=== PATIENT | female | born 1990 | race African-American/Black ===

== ENCOUNTER 2017-04-12 01:05 | Emergency (ER) | payer OTHER ==
[2017-04-12 03:42] LABS: microscopic required? YES; urine erythrocyte TRACE (NEGATIVE)
[2017-04-12 03:58] VITALS: BP 122/81
== END 2017-04-12 03:58 | disposition home or self-care (01) ==
LOC: ED 01:05
PROVIDERS: Emergency Medicine
DX: S39.012A Strain of muscle, fascia and tendon of lower back, initial encounter (principal); I10 Essential (primary) hypertension; X58.XXXA Exposure to other specified factors, initial encounter; Y93.89 Activity, other specified; Y99.8 Other external cause status; Y92.89 Other specified places as the place of occurrence of the external cause
CPT/HCPCS: J1885

== ENCOUNTER 2017-05-20 21:17 | Emergency (ER) | payer OTHER ==
[~2017-05-20] VITALS: Ht 154.9 cm; Wt 57.1 kg
[2017-05-20 23:48] VITALS: BP 112/76
== END 2017-05-20 23:48 | disposition home or self-care (01) ==
LOC: ED 21:17
DX: I10 Essential (primary) hypertension (principal); M79.89 Other specified soft tissue disorders
CPT/HCPCS: J8597; Q0163

== ENCOUNTER 2020-08-30 21:00 | Emergency (ER) | payer OTHER ==
[~2020-08-30] VITALS: Ht 157.5 cm; Wt 60.3 kg
[2020-08-30 21:13] VITALS: Ht 157.5 cm; Wt 60.3 kg
[2020-08-30 22:14] LABS: BASOPHIL % 0.5 % (0.2-1.3); PLATELET COUNT 242 x10^3mcL (179-408); RED CELL DISTRIBUTION WIDTH 13.3 % (12.3-17.7)
[2020-08-30 22:20] LABS: CALCIUM 8.9 mg/dL (8.5-10.1); CARBON DIOXIDE 30.5 mmol/L (21-32); CHLORIDE SERUM 103 mmol/L (98-107); CREATININE SERUM 1.2 mg/dL (0.6-1.0); GFR1 56 mL/min; GLUCOSE SERUM 83 mg/dL (74-106); SODIUM SERUM 139 mmol/L (136-145)
[2020-08-30 22:24] LABS: ALKALINE PHOSPHATASE 57 U/L (46-116); ALT/SGPT 16 U/L (14-59); AST/SGOT 9 U/L (15-37); BILIRUBIN TOTAL 0.4 mg/dL (0.20-1.00); TOTAL PROTEIN, SERUM 6.5 g/dL (6.4-8.2)
[2020-08-30 22:38] LABS: ALBUMIN 3.3 g/dL (3.4-5.0)
[2020-08-30 23:11] LABS: AMPHETAMINE QUAL UR NONE DETECTED (See below)
[2020-08-30 23:25] VITALS: BP 130/91
== END 2020-08-30 23:43 | disposition home or self-care (01) ==
LOC: ED 21:00
PROVIDERS: Specialist
DX: I10 Essential (primary) hypertension (principal); R07.89 Other chest pain; R51.9 Headache, unspecified
CPT/HCPCS: 83880; G0480; J1885; J3490